=== PATIENT | female | born 1980 | race Caucasian/White ===

== ENCOUNTER 2018-06-18 20:04 | Emergency (ER) | payer OTHER ==
[2018-06-18 20:32] VITALS: BP 128/80; PULSE 96; RESP 16; TEMP 98.4
--- NOTE | 2018-06-18 21:41 | XR ---
EXAMINATION TYPE: XR hand complete LT DATE OF EXAM: 06/18/2018 COMPARISON: NONE HISTORY: Laceration TECHNIQUE: 3 views FINDINGS: I see no fracture nor dislocation. Joint spaces are normal. There is no sign of a radiopaqu e foreign body. IMPRESSION: No acute abnormality of the right hand. No sign of a foreign body.
[2018-06-18] MEDS ORDERED: DIPH,PERTUS(ACELL)TETVAC-LF 0.5 ML VIAL IM ONE (22:32)
--- NOTE | 2018-06-18 22:50 | ED ---
General Adult HPI - General Chief complaint: Wound/Laceration Stated complaint: Hand laceration Source: patient, RN notes reviewed, old records reviewed Mode of arrival: ambulatory Limitations: no limitations - History of Present Illness Initial comments: 37-year-old female patient with no pertinent past medical history fence ED if sustaining a laceration to the second MCP joint of right hand. Patient was opening a box with a knife and slipped causing a laceration. Patient states that the knife was clean. Patient does not know last tetanus shot. Patient denies any other injury. Patient denies any other complaints. Systemic: Pt denies fatigue, myalgia, fever/chills, rash. Pt denies weakness, night sweats, weight loss. Neuro: Pt denies headache, visual disturbances, syncope or pre-syncope. HEENT: Pt denies ocular discharge or irritation, otalgia, rhinorrhea, pharyngitis or notable lymphadenopathy. Cardiopulmonary: Pt denies chest pain, SOB, heart palpitations, dyspnea on exertion. Abdominal/GI: Pt denies abdominal pain, n/v/d. : Pt denies dysuria, burning w/ urination, frequency/urgency. Denies new onset urinary or bowel incontinence. MSK: Pt denies myalgia, loss of strength or function in extremities. Neuro: Pt denies new onset weakness, paresthesias. - Related Data Previous Rx's Medication Instructions Recorded HYDROcodone/APAP 7.5-325MG [[place] 1 tab PO Q6HR PRN #28 tab 11/02/15 7.5-325] Levofloxacin [Levaquin] 500 mg PO DAILY #5 tab 11/03/15 Allergies Allergy/AdvReac Type Severity Reaction Status Date / Time Penicillins AdvReac Rash/Hives Verified 06/18/18 20:32 Review of Systems ROS Statement: Those systems with pertinent positive or pertinent negative responses have been documented in the HPI. ROS Other: All systems not noted in ROS Statement are negative. Past Medical History Past Medical History: No Reported History History of Any Multi-Drug Resistant Organisms: None Reported Past Surgical History: Section, Tubal Ligation Past Anesthesia/Blood Transfusion Reactions: No Reported Reaction Past Psychological History: No Psychological Hx Reported Smoking Status: Current every day smoker Past Alcohol Use History: None Reported Past Drug Use History: None Reported General Exam - General Exam Comments Initial Comments: Constitutional: NAD, AOX3, Pt has pleasant affect. HEENT: NC/AT, trachea midline, neck supple, no lymphadenopathy. Posterior pharynx non erythematous, without exudates. External ears appear normal, without discharge. Mucous membranes moist. Eyes PERRLA, EOM intact. There is no scleral icterus. No pallor noted. Cardiopulmonary: RRR, no murmurs, rubs or gallops, no JVD noted. Lungs CTAB in anterior and posterior [place]. No peripheral edema. Abdominal exam: Abdomen soft and non-distended. Abdomen non-tender to palpation in all 4 quadrants. Bowel sounds active in LLQ. No hepatosplenomegaly. No ecchymosis Neuro: CN II-XII grossly intact. No nuchal rigidity. MSK: Approximately 2 cm laceration at the lateral aspect of her second right MCP joint. Wound explored no ligamentous or bony involvement. Patient neurovascularly intact. Patient neurovascularly intact after suture placement. The refill less than 2 seconds. Full range of motion of second digit on right hand flexion extension radial and ulnar deviaion. Patient has full range of motion of both hands and all digits bilaterally. No posterior calf tenderness bilaterally, homans sign negative bilaterally. Posterior tibialis and radial pulse +2 bilaterally. Sensation intact in upper and lower extremities. Full active ROM in upper and lower extremities, 5/5 stregnth. Limitations: no limitations Course Vital Signs 06/18/18 20:29 Temperature 98.4 F Pulse Rate 96 Respiratory 16 Rate Blood Pressure 128/80 O2 Sat by Pulse 98 Oximetry Procedures - Laceration Laceration #1 Consent Obtained: verbal consent Time Out Performed: Yes Indication: laceration Site: hand Size (cm): 2 Description: linear Depth: simple, single layer Anesthetic Used: lidocaine 1% Anesthesia Technique: local infiltration Amount (mls): 4 Pre-repair: wound explored, irrigated extensively Type of Sutures: nylon Size of Sutures: 5-0 Number of Sutures: 3 Technique: simple, interrupted Patient Tolerated Procedure: well, no complications Medical Decision Making - Medical Decision Making 37-year-old female patient with no pertinent past medical history fence ED if sustaining a laceration to the second MCP joint of right hand. Patient was opening a box with a knife and slipped causing a laceration. Physical exam displayed Approximately 2 cm laceration at the lateral aspect of her second right MCP joint. Wound explored no ligamentous or bony involvement. Patient neurovascularly intact. Patient neurovascularly intact after suture placement. The refill less than 2 seconds. Full range of motion of second digit on right hand flexion extension radial and ulnar deviaion. 3 simple interrupted sutures placed. Patient tired procedure well. Patient to follow-up sutures removed in 7-10 days. Patient follow up with PCP in 1-2 days. Case discussed with Dr. Vee. Tetanus updated. Disposition Clinical Impression: Laceration Disposition: HOME SELF-CARE Condition: Good Instructions: Laceration (ED) Additional Instructions: Patient to adhere to previously discussed treatment plan and will take medication(s) as directed. Patient to follow up with PCP in 1-2 days. Patient to return to ED if symptoms do not improve. Is patient prescribed a controlled substance at d/c from ED?: No Referrals: Go Pendleton DO [Primary Care Provider] - 1-2 days Time of Disposition: 22:51
== END 2018-06-18 22:59 | disposition home or self-care (01) ==
LOC: EC 20:04
DX: S61.210A Laceration without foreign body of right index finger without damage to nail, initial encounter (principal); F17.200 Nicotine dependence, unspecified, uncomplicated; Z88.0 Allergy status to penicillin; Z23 Encounter for immunization; W26.0XXA Contact with knife, initial encounter; Y93.89 Activity, other specified
CPT/HCPCS: 12001; 90471; 90715; 99283

== ENCOUNTER → 2021-02-13 | Outpatient (CLI) | payer OTHER ==
--- NOTE | 2021-02-13 19:08 | XR ---
Left foot HISTORY: Trauma and pain, S99.922A 3 views of left foot Bone mineralization, joint spaces and alignment are maintained. There is an enthesophyte at insertion of Achilles tendon. IMPRESSION: No fracture or dislocation.
== END | disposition home or self-care (01) ==
LOC: RADXRMAIN 17:10
PROVIDERS: ATTEND Internal Medicine
DX: S99.922A Unspecified injury of left foot, initial encounter (principal); X58.XXXA Exposure to other specified factors, initial encounter

== ENCOUNTER → 2024-02-02 | Day surgery (SDC) | payer BC ==
--- NOTE | 2024-03-03 10:46 | USB ---
Risk Values: Christa 5 year model risk: 0.5%. NCI Lifetime model risk: 6.5%. Findings: The procedure of ultrasound guided core biopsy was explained to the patient. Benefits, alternatives, and risks were discussed. An informed consent was then obtained. A timeout was performed. The patient was placed in supine positioning for imaging and for the procedure. The area in question was reidentified. On the current ultrasound this appeared to have a normal hypoechoic cortex without thickening. Vascular hilum appears to be present. This is adjacent to a larger vascular vessel. Findings appear compatible with benign intramammary lymph node. Precautionary 6 month follow-up ultrasound and mammogram is recommended. Finding was discussed with the patient. The patient will return earlier if there are changing clinical symptoms. Earlier imaging can be performed for changing clinical findings. Impression: 1. Probably Benign finding left breast. 2. BI-RADS 3. Management: Diagnostic Mammogram of the left breast in 6 months. Diagnostic Breast Ultrasound of the left breast in 6 months. Recommendations: 1. Follow-up left breast mammogram and ultrasound 6 months. 2. Patient should continue monthly self breast exam. Electronically signed and approved by: Stephan Michele D.O. Radiologis
== END ==
LOC: RADUSWWP 12:00
PROVIDERS: ATTEND Internal Medicine
DX: R92.2 Inconclusive mammogram (principal); R92.8 Other abnormal and inconclusive findings on diagnostic imaging of breast